=== PATIENT | female | born 1955 | race African-American/Black ===

== ENCOUNTER 2021-06-20 12:40 | Emergency (ER) | payer MEDICARE ==
[~2021-06-20] VITALS: Ht 162.6 cm; Wt 66.8 kg
[~2021-06-20 12:40] MED LIST: ACIPHEX20 MG PO; AMLODIPINE BESY10 MG PO; ASPIRIN325 MG PO; CRESTOR10 MG PO; ENALAPRIL10 MG PO; HUMULIN R1 M1 SC; HYDROCHLORO25 MG/TAB PO; LEVEMIR SC; NEXIUM40 M1 PO; ZOLOFT100 MG PO
[2021-06-20] MEDS ORDERED: KEFLEX500 MG PO (14:14)
[2021-06-20 14:37] VITALS: BP 152/73
== END 2021-06-20 14:45 | disposition home or self-care (01) ==
LOC: ED 12:40
DX: S81.812A Laceration without foreign body, left lower leg, initial encounter (principal); L08.9 Local infection of the skin and subcutaneous tissue, unspecified; B95.61 Methicillin susceptible Staphylococcus aureus infection as the cause of diseases classified elsewhere; E11.9 Type 2 diabetes mellitus without complications; I10 Essential (primary) hypertension; K21.9 Gastro-esophageal reflux disease without esophagitis; H54.7 Unspecified visual loss; W22.09XA Striking against other stationary object, initial encounter; Y92.009 Unspecified place in unspecified non-institutional (private) residence as the place of occurrence of the external cause; Z79.4 Long term (current) use of insulin

== ENCOUNTER 2021-06-28 15:20 | Emergency (ER) | payer MEDICARE ==
[~2021-06-28] VITALS: Ht 162.6 cm; Wt 67.0 kg
[~2021-06-28 15:20] MED LIST changes: +KEFLEX500 MG PO
[2021-06-28] MEDS ORDERED: OMNI-PAC300 MG PO (17:46)
[2021-06-28 18:30] VITALS: BP 136/79
== END 2021-06-28 18:30 | disposition home or self-care (01) ==
LOC: ED 15:20
DX: S81.012A Laceration without foreign body, left knee, initial encounter (principal); E11.9 Type 2 diabetes mellitus without complications; H54.7 Unspecified visual loss; I10 Essential (primary) hypertension; K21.9 Gastro-esophageal reflux disease without esophagitis; X58.XXXA Exposure to other specified factors, initial encounter; Z79.4 Long term (current) use of insulin

== ENCOUNTER 2021-11-19 09:53 | Observation (INO) | payer MEDICARE ==
[~2021-11-19] VITALS: Ht 162.6 cm; Wt 46.0 kg
[2021-11-19] VITALS (8 sets, daily range): BP systolic 158–208; BP diastolic 76–111
[~2021-11-19 09:53] MED LIST changes: +ASPIRIN ADULT L81 M2 PO; -ASPIRIN325 MG PO; +CLONIDINE0.1 MG PO; +HUMALOG100 UNIT SC; +LABETALOL HYDR200 MG PO; +LANTUS100 UNIT; +LEVEMIR100 UNIT SC; +LOSARTAN POTASS50 MG PO; +NEXIUM 24HR20 MG PO; +NORVASC2.5 M1 PO; +OMNI-PAC300 MG PO
[2021-11-19 10:29] LABS: HEMATOCRIT 32.3 % (37.0-47.0); HEMOGLOBIN 10.8 g/dl (12.0-16.0); MEAN CELL VOLUME 89.2 fL CALC (80.0-100.0); MEAN CORPUSCULAR HGB 29.8 pG CALC (26.0-32.0); MEAN CORPUSCULAR HGB CONC 33.4 g/dL CAL (32.0-36.0); NEUT# 2.99 thou/uL (2.00-7.15); RED BLOOD COUNT 3.62 mill/uL (4.20-5.60); RED CELL DISTRI WIDTH 11.6 % (11.5-15.5)
[2021-11-19 10:42] LABS: URINE BILIRUBIN - DIPSTICK NEGATIVE (NEGATIVE); URINE BLOOD DIPSTICK TRACE-INTACT (NEGATIVE); URINE COLOR YELLOW; URINE GLUCOSE - DIPSTICK >=1000 mg/dL (NEGATIVE); URINE KETONE NEGATIVE (NEGATIVE); URINE LEUK ESTERASE NEGATIVE (NEGATIVE); URINE PROTEIN - DIPSTICK TRACE mg/dL (NEG-TRACE); URINE SPECIFIC GRAVITY <=1.005; URINE UROBILINOGEN - DIPSTICK 0.2 E.U./dL (0.2)
[2021-11-19 10:45] LABS: URINE NITRITE - DIPSTICK NEGATIVE (Negative)
[2021-11-19 10:46] LABS: BILIRUBIN, TOTAL 0.6 mg/dL (0.0-1.4); BUN 13 mg/dL (8-23); BUN/CREATININE RATIO 13 (12-20 (CALC)); CHLORIDE 95 mmol/l (95-108); GFR FOR AFR.AMER. > 60 ML/MIN (>=60 (CALC)); GFR OTHER RACES 55 ML/MIN (>=60 (CALC)); POTASSIUM 3.8 mmol/l (3.5-5.1); SGOT/AST 20 u/l (9-36); SODIUM 134 mmol/l (137-146)
[2021-11-19 10:49] LABS: ALKALINE PHOSPHATASE 83 u/l (38-126); ANION GAP 8 (6-22 (CALC)); CARBON DIOXIDE 35 mmol/l (22-30); TOTAL PROTEIN 7.3 g/dL (6.3-8.2)
[2021-11-19] MEDS ORDERED: SERTRALINE50 MG PO (16:02)
[2021-11-19] MEDS ORDERED: OFLOXACIN0.31 OD (16:05)
[2021-11-19] MEDS ORDERED: XALATAN0.005 % OU (16:06)
[2021-11-20] VITALS: BP 140/75
[2021-11-20 04:00] VITALS: BP 147/79
[2021-11-20 05:10] LABS: HEMATOCRIT 30.5 % (37.0-47.0); HEMOGLOBIN 10.1 g/dl (12.0-16.0); IMMATURE GRANULOCYTES 0.2 % (0.0-5.0); MEAN CELL VOLUME 90.5 fL CALC (80.0-100.0); MEAN CORPUSCULAR HGB CONC 33.1 g/dL CAL (32.0-36.0); NEUT# 3.73 thou/uL (2.00-7.15); RED BLOOD COUNT 3.37 mill/uL (4.20-5.60); RED CELL DISTRI WIDTH 11.6 % (11.5-15.5)
[2021-11-20 05:26] LABS: ALBUMIN 3.4 g/dL (3.2-5.0); ALKALINE PHOSPHATASE 64 u/l (38-126); ANION GAP 9 (6-22 (CALC)); BILIRUBIN, TOTAL 0.4 mg/dL (0.0-1.4); BUN 11 mg/dL (8-23); BUN/CREATININE RATIO 12 (12-20 (CALC)); CARBON DIOXIDE 29 mmol/l (22-30); CHLORIDE 102 mmol/l (95-108); CREATININE 0.9 mg/dL (0.5-1.0); GFR FOR AFR.AMER. > 60 ML/MIN (>=60 (CALC)); GFR OTHER RACES > 60 ML/MIN (>=60 (CALC)); POTASSIUM 3.4 mmol/l (3.5-5.1); SGOT/AST 18 u/l (9-36); SODIUM 137 mmol/l (137-146); TOTAL PROTEIN 6.1 g/dL (6.3-8.2)
[2021-11-20 05:27] LABS: MAGNESIUM 1.7 mg/dL (1.6-2.3)
[2021-11-20 06:46] VITALS: BP 143/77
[2021-11-20 18:54] VITALS: BP 135/67
[2021-11-20 20:30] VITALS: BP 151/74
[2021-11-21 01:11] VITALS: BP 146/71
[2021-11-21 04:30] VITALS: BP 175/86
[2021-11-21 05:59] LABS: ANION GAP 9 (6-22 (CALC)); BUN 9 mg/dL (8-23); BUN/CREATININE RATIO 11 (12-20 (CALC)); CARBON DIOXIDE 28 mmol/l (22-30); CHLORIDE 103 mmol/l (95-108); CREATININE 0.8 mg/dL (0.5-1.0); GFR FOR AFR.AMER. > 60 ML/MIN (>=60 (CALC)); GFR OTHER RACES > 60 ML/MIN (>=60 (CALC)); MAGNESIUM 1.7 mg/dL (1.6-2.3); POTASSIUM 3.9 mmol/l (3.5-5.1); SODIUM 136 mmol/l (137-146)
[2021-11-21 06:56] VITALS: BP 182/68
[2021-11-21 10:56] VITALS: BP 145/76
[2021-11-21 17:01] VITALS: BP 209/101
[2021-11-21 19:11] VITALS: BP 126/52
[2021-11-22 00:06] VITALS: BP 142/76
[2021-11-22 04:41] VITALS: BP 155/67
[2021-11-22 05:30] LABS: HEMATOCRIT 32.1 % (37.0-47.0); HEMOGLOBIN 10.4 g/dl (12.0-16.0); MEAN CELL VOLUME 92.2 fL CALC (80.0-100.0); MEAN CORPUSCULAR HGB 29.9 pG CALC (26.0-32.0); MEAN CORPUSCULAR HGB CONC 32.4 g/dL CAL (32.0-36.0); RED BLOOD COUNT 3.48 mill/uL (4.20-5.60); RED CELL DISTRI WIDTH 11.6 % (11.5-15.5)
[2021-11-22 06:03] LABS: ANION GAP 12 (6-22 (CALC)); BUN 9 mg/dL (8-23); BUN/CREATININE RATIO 9 (12-20 (CALC)); CARBON DIOXIDE 26 mmol/l (22-30); CHLORIDE 101 mmol/l (95-108); CREATININE 0.9 mg/dL (0.5-1.0); GFR FOR AFR.AMER. > 60 ML/MIN (>=60 (CALC)); GFR OTHER RACES > 60 ML/MIN (>=60 (CALC)); POTASSIUM 3.8 mmol/l (3.5-5.1); SODIUM 135 mmol/l (137-146)
[2021-11-22 06:23] VITALS: BP 141/76
[2021-11-22 10:19] VITALS: BP 136/76
[2021-11-22 14:11] VITALS: BP 133/67
[2021-11-22 19:09] VITALS: BP 133/69
[2021-11-23] VITALS (12 sets, daily range): BP systolic 112–198; BP diastolic 60–96
[2021-11-23 05:13] LABS: HEMATOCRIT 30.2 % (37.0-47.0); HEMOGLOBIN 9.7 g/dl (12.0-16.0); IMMATURE GRANULOCYTES 0.2 % (0.0-5.0); MEAN CELL VOLUME 92.4 fL CALC (80.0-100.0); MEAN CORPUSCULAR HGB 29.7 pG CALC (26.0-32.0); MEAN CORPUSCULAR HGB CONC 32.1 g/dL CAL (32.0-36.0); NEUT# 2.74 thou/uL (2.00-7.15); RED BLOOD COUNT 3.27 mill/uL (4.20-5.60); RED CELL DISTRI WIDTH 11.7 % (11.5-15.5)
[2021-11-23 05:34] LABS: ALBUMIN 3.1 g/dL (3.2-5.0); CREATININE 1.1 mg/dL (0.5-1.0); POTASSIUM 4.4 mmol/l (3.5-5.1); TOTAL PROTEIN 5.8 g/dL (6.3-8.2)
[2021-11-23 05:42] LABS: BILIRUBIN, TOTAL 0.2 mg/dL (0.0-1.4)
[2021-11-23 16:28] LABS: URINE BILIRUBIN - DIPSTICK NEGATIVE (NEGATIVE); URINE BLOOD DIPSTICK NEGATIVE (NEGATIVE); URINE CLARITY CLEAR; URINE COLOR YELLOW; URINE GLUCOSE - DIPSTICK >=1000 mg/dL (NEGATIVE); URINE KETONE NEGATIVE (NEGATIVE); URINE LEUK ESTERASE NEGATIVE (Negative); URINE NITRITE - DIPSTICK NEGATIVE (Negative); URINE PROTEIN - DIPSTICK 30 mg/dL (NEG-TRACE); URINE SPECIFIC GRAVITY 1.025; URINE UROBILINOGEN - DIPSTICK 0.2 E.U./dL (0.2)
[2021-11-23 16:46] LABS: URINE RBC 0-2 RBC/hpf (0-5); URINE WBC 0-2 WBC/hpf (0-5)
[2021-11-24] VITALS (11 sets, daily range): BP systolic 96–190; BP diastolic 49–100
[2021-11-24 05:24] LABS: HEMATOCRIT 33.1 % (37.0-47.0); HEMOGLOBIN 10.7 g/dl (12.0-16.0); IMMATURE GRANULOCYTES 0.2 % (0.0-5.0); MEAN CELL VOLUME 92.5 fL CALC (80.0-100.0); MEAN CORPUSCULAR HGB 29.9 pG CALC (26.0-32.0); MEAN CORPUSCULAR HGB CONC 32.3 g/dL CAL (32.0-36.0); NEUT# 4.9 thou/uL (2.00-7.15); RED BLOOD COUNT 3.58 mill/uL (4.20-5.60); RED CELL DISTRI WIDTH 11.7 % (11.5-15.5)
[2021-11-24 05:46] LABS: CREATININE 1.1 mg/dL (0.5-1.0); MAGNESIUM 1.5 mg/dL (1.6-2.3)
[2021-11-24 05:48] LABS: POTASSIUM 5.2 mmol/l (3.5-5.1)
== END 2021-11-24 18:35 ==
LOC: ED 09:53 → ED-I 11:40 → ED 12:07 → MS2 12:08
PROVIDERS: Family Medicine; Hospitalist; Nurse Practitioner; ADMIT Internal Medicine; ATTEND Internal Medicine
DX: E11.65 Type 2 diabetes mellitus with hyperglycemia (principal); I10 Essential (primary) hypertension; E11.36 Type 2 diabetes mellitus with diabetic cataract; H26.9 Unspecified cataract; K21.9 Gastro-esophageal reflux disease without esophagitis; R53.1 Weakness; H54.8 Legal blindness, as defined in USA; F32.A Depression, unspecified; T38.3X6A Underdosing of insulin and oral hypoglycemic [antidiabetic] drugs, initial encounter; T46.5X6A Underdosing of other antihypertensive drugs, initial encounter; Z91.128 Patient's intentional underdosing of medication regimen for other reason; Z60.2 Problems related to living alone; Z86.73 Personal history of transient ischemic attack (TIA), and cerebral infarction without residual deficits; Z79.4 Long term (current) use of insulin; Z20.822 Contact with and (suspected) exposure to COVID-19
CPT/HCPCS: S0166

== ENCOUNTER 2022-09-12 13:13 | Observation (INO) | payer MEDICARE, OTHER ==
[~2022-09-12] VITALS: Ht 162.6 cm; Wt 70.0 kg
[2022-09-12] VITALS (11 sets, daily range): BP systolic 137–187; BP diastolic 73–93
[~2022-09-12 13:13] MED LIST changes: +OFLOXACIN0.31 OD; +SERTRALINE50 MG PO; +XALATAN0.005 % OU
[2022-09-12 13:52] LABS: BASO% 0.3 % (0-3); EOS% 0.1 % (0-8); HEMATOCRIT 30.9 % (37.0-47.0); HEMOGLOBIN 9.8 g/dl (12.0-16.0); IMMATURE GRANULOCYTES 0.1 % (0.0-5.0); LYMPH% 11.7 % (15-41); MEAN CORPUSCULAR HGB 27.6 pG CALC (26.0-32.0); MEAN CORPUSCULAR HGB CONC 31.7 g/dL CAL (32.0-36.0); MONO% 4.1 % (2-13); NEUT# 5.77 thou/uL (2.00-7.15); NEUT% 83.7 % (42-76); RED BLOOD COUNT 3.55 mill/uL (4.20-5.60); RED CELL DISTRI WIDTH 13.3 % (11.5-15.5)
[2022-09-12 14:04] LABS: INTERNATIONAL NORMALIZED RATIO 1.1 RATIO (0.7-1.3)
[2022-09-12 14:06] LABS: ALKALINE PHOSPHATASE 80 u/l (38-126); ANION GAP 17 (6-22 (CALC)); CARBON DIOXIDE 20 mmol/l (22-30); CHLORIDE 105 mmol/l (95-108); CREATININE 1.9 mg/dL (0.5-1.0); GFR FOR AFR.AMER. 32 ML/MIN (>=60 (CALC)); GFR OTHER RACES 26 ML/MIN (>=60 (CALC)); POTASSIUM 4.6 mmol/l (3.5-5.1); SGOT/AST 22 u/l (9-36); SODIUM 136 mmol/l (137-146)
[2022-09-12 14:45] LABS: URINE BILIRUBIN - DIPSTICK NEGATIVE (NEGATIVE); URINE BLOOD DIPSTICK SMALL (NEGATIVE); URINE COLOR YELLOW; URINE GLUCOSE - DIPSTICK NEGATIVE (NEGATIVE); URINE KETONE TRACE mg/dL (NEGATIVE); URINE LEUK ESTERASE TRACE (NEGATIVE); URINE PH 5.5 (4.5-8.0); URINE PROTEIN - DIPSTICK NEGATIVE (NEG-TRACE); URINE UROBILINOGEN - DIPSTICK 0.2 E.U./dL (0.2)
[2022-09-12 14:46] LABS: URINE NITRITE - DIPSTICK NEGATIVE (Negative)
[2022-09-12 14:50] LABS: URINE CASTS RARE lpf (NONE-RARE); URINE SQUAMOUS EPITHELIAL CELL FEW EPI/hpf (0-FEW); URINE WBC 0-2 WBC/hpf (0-5)
[2022-09-12 14:58] LABS: ALBUMIN 4.6 g/dL (3.2-5.0); BILIRUBIN, TOTAL 0.4 mg/dL (0.02-1.3); BUN 37 mg/dL (8-23); BUN/CREATININE RATIO 19 (12-20 (CALC)); TOTAL PROTEIN 8.1 g/dL (6.3-8.2)
[2022-09-12] MEDS ORDERED: ABILIFY5 MG PO (15:27)
[2022-09-12] MEDS ORDERED: AMLODIPINE BES2.5 MG PO (15:27)
[2022-09-12] MEDS ORDERED: HYDROCHLOROT25 MG PO (15:29)
[2022-09-12] MEDS ORDERED: LINZESS72 MCG PO (15:30)
[2022-09-12] MEDS ORDERED: NOVOLOG100 UNIT SC (15:31)
[2022-09-12] MEDS ORDERED: TOPAMAX50 M1 PO (15:32)
[2022-09-12] MEDS ORDERED: TRESIBA100 UNIT/M SC (15:33)
[2022-09-13] VITALS (7 sets, daily range): BP systolic 131–164; BP diastolic 54–79
[2022-09-13 05:29] LABS: BASO% 0.4 % (0-3); EOS% 0.7 % (0-8); HEMATOCRIT 29.6 % (37.0-47.0); HEMOGLOBIN 9.3 g/dl (12.0-16.0); IMMATURE GRANULOCYTES 0.2 % (0.0-5.0); LYMPH% 28.9 % (15-41); MEAN CORPUSCULAR HGB CONC 31.4 g/dL CAL (32.0-36.0); NEUT# 3.53 thou/uL (2.00-7.15); NEUT% 62.8 % (42-76); RED BLOOD COUNT 3.44 mill/uL (4.20-5.60); RED CELL DISTRI WIDTH 13.3 % (11.5-15.5)
[2022-09-13 05:48] LABS: ALBUMIN 4.2 g/dL (3.2-5.0); BILIRUBIN, TOTAL 0.3 mg/dL (0.02-1.3); CREATININE 1.4 mg/dL (0.5-1.0); POTASSIUM 3.8 mmol/l (3.5-5.1); TOTAL PROTEIN 7.5 g/dL (6.3-8.2)
[2022-09-14] VITALS: BP 130/71
[2022-09-14 03:46] VITALS: BP 144/66
[2022-09-14 05:49] VITALS: BP 131/49
[2022-09-14 05:51] LABS: BILIRUBIN, TOTAL 0.3 mg/dL (0.02-1.3); CREATININE 1.3 mg/dL (0.5-1.0); POTASSIUM 3.7 mmol/l (3.5-5.1)
[2022-09-14 05:52] LABS: MAGNESIUM 1.9 mg/dL (1.6-2.3)
[2022-09-14 05:54] LABS: HEMATOCRIT 29.8 % (37.0-47.0); HEMOGLOBIN 9.3 g/dl (12.0-16.0); MEAN CELL VOLUME 86.9 fL CALC (80.0-100.0); MEAN CORPUSCULAR HGB 27.1 pG CALC (26.0-32.0); MEAN CORPUSCULAR HGB CONC 31.2 g/dL CAL (32.0-36.0); RED BLOOD COUNT 3.43 mill/uL (4.20-5.60); RED CELL DISTRI WIDTH 13.3 % (11.5-15.5)
[2022-09-14 09:48] VITALS: BP 154/75
== END 2022-09-14 14:49 ==
LOC: ED 13:13 → ED-I 15:00 → ED 15:16 → MS2 15:17
PROVIDERS: Family Medicine; Nurse Practitioner Family; ADMIT Internal Medicine; ATTEND Internal Medicine
DX: G93.40 Encephalopathy, unspecified (principal); N17.9 Acute kidney failure, unspecified; I12.9 Hypertensive chronic kidney disease with stage 1 through stage 4 chronic kidney disease, or unspecified chronic kidney disease; E11.22 Type 2 diabetes mellitus with diabetic chronic kidney disease; N18.9 Chronic kidney disease, unspecified; H54.7 Unspecified visual loss; K21.9 Gastro-esophageal reflux disease without esophagitis; F32.A Depression, unspecified; Z79.4 Long term (current) use of insulin; Z86.73 Personal history of transient ischemic attack (TIA), and cerebral infarction without residual deficits; Z20.822 Contact with and (suspected) exposure to COVID-19
CPT/HCPCS: J2060

== ENCOUNTER 2023-12-27 11:29 | Emergency (ER) | payer MEDICARE, OTHER ==
[~2023-12-27] VITALS: Ht 162.6 cm; Wt 54.4 kg
[2023-12-27] VITALS (15 sets, daily range): BP systolic 118–146; BP diastolic 49–73
[~2023-12-27 11:29] MED LIST changes: +ABILIFY5 MG PO; +AMLODIPINE BES2.5 MG PO; +CLONIDINE0.2 MG PO; +DULCOLAX10 MG RE; +GLUCAGON1 MG IJ; +HYDROCHLOROT25 MG PO; +LINZESS72 MCG PO; +MILK OF MAGNES7.75 %; +NAMENDA1 TAB PO; +NOVOLOG100 UNIT SC; +PAIN RELIEF325 MG PO; +POLYETHYLE17 GM/SCOO; +REXULTI0.5 MG; +TOPAMAX50 M1 PO; +TRESIBA100 UNIT/M SC; +ULTRAM50 MG PO; +[UNRECOGNIZED DRUG - OTHER]
[2023-12-27 12:00] LABS: BASO% 0.5 % (0-3); EOS% 0.9 % (0-8); HEMATOCRIT 30.7 % (37.0-47.0); HEMOGLOBIN 9.6 g/dl (12.0-16.0); IMMATURE GRANULOCYTES 0.2 % (0.0-5.0); LYMPH% 27.6 % (15-41); MEAN CELL VOLUME 92.2 fL CALC (80.0-100.0); MEAN CORPUSCULAR HGB 28.8 pG CALC (26.0-32.0); MEAN CORPUSCULAR HGB CONC 31.3 g/dL CAL (32.0-36.0); MONO% 7.3 % (2-13); NEUT# 2.71 thou/uL (2.00-7.15); NEUT% 63.5 % (42-76); RED BLOOD COUNT 3.33 mill/uL (4.20-5.60); RED CELL DISTRI WIDTH 12.8 % (11.5-15.5)
[2023-12-27 12:16] LABS: ALBUMIN 4.2 g/dL (3.2-5.0); ALKALINE PHOSPHATASE 57 u/l (38-126); ANION GAP 12 (6-22 (CALC)); BILIRUBIN, TOTAL 0.3 mg/dL (0.02-1.3); BUN 32 mg/dL (8-23); BUN/CREATININE RATIO 18 (12-20 (CALC)); CARBON DIOXIDE 22 mmol/l (22-30); CHLORIDE 110 mmol/l (95-108); CREATININE 1.7 mg/dL (0.5-1.0); ESTIMATED GFR 32 ML/MIN (>=90 (CALC)); SGOT/AST 28 u/l (9-36); SODIUM 139 mmol/l (137-146); TOTAL PROTEIN 7.3 g/dL (6.3-8.2)
== END 2023-12-27 15:52 | disposition home or self-care (01) ==
LOC: ED 11:29
PROVIDERS: Family Medicine
DX: R55 Syncope and collapse (principal); I10 Essential (primary) hypertension; E11.9 Type 2 diabetes mellitus without complications; F32.A Depression, unspecified; Z86.73 Personal history of transient ischemic attack (TIA), and cerebral infarction without residual deficits; F03.90 Unspecified dementia, unspecified severity, without behavioral disturbance, psychotic disturbance, mood disturbance, and anxiety; H54.7 Unspecified visual loss; F41.9 Anxiety disorder, unspecified; Z79.4 Long term (current) use of insulin

== ENCOUNTER 2024-06-05 12:12 | Emergency (ER) | payer MEDICARE, OTHER ==
[~2024-06-05] VITALS: Ht 162.6 cm; Wt 63.6 kg
[2024-06-05 12:48] LABS: BASO% 0.5 % (0-3); EOS% 1.2 % (0-8); HEMATOCRIT 29.6 % (37.0-47.0); HEMOGLOBIN 9.2 g/dl (12.0-16.0); IMMATURE GRANULOCYTES 0.2 % (0.0-5.0); LYMPH% 30.6 % (15-41); MEAN CELL VOLUME 93.7 fL CALC (80.0-100.0); MEAN CORPUSCULAR HGB 29.1 pG CALC (26.0-32.0); MEAN CORPUSCULAR HGB CONC 31.1 g/dL CAL (32.0-36.0); MONO% 6.7 % (2-13); NEUT# 2.56 thou/uL (2.00-7.15); NEUT% 60.8 % (42-76); RED BLOOD COUNT 3.16 mill/uL (4.20-5.60); RED CELL DISTRI WIDTH 12.5 % (11.5-15.5)
[2024-06-05 13:09] LABS: ALBUMIN 4.4 g/dL (3.2-5.0); ALKALINE PHOSPHATASE 51 u/l (38-126); ANION GAP 16 (6-22 (CALC)); BUN 29 mg/dL (8-23); BUN/CREATININE RATIO 18 (12-20 (CALC)); CARBON DIOXIDE 22 mmol/l (22-30); CHLORIDE 105 mmol/l (95-108); CREATININE 1.6 mg/dL (0.5-1.0); ESTIMATED GFR 34 ML/MIN (>=90 (CALC)); POTASSIUM 4.9 mmol/l (3.5-5.1); SGOT/AST 24 u/l (9-36); SODIUM 138 mmol/l (137-146); TOTAL PROTEIN 7.3 g/dL (6.3-8.2)
[2024-06-05 13:23] LABS: BILIRUBIN, TOTAL 0.3 mg/dL (0.02-1.3)
[2024-06-05 13:49] LABS: URINE BILIRUBIN - DIPSTICK Negative (NEGATIVE); URINE BLOOD DIPSTICK Negative (NEGATIVE); URINE GLUCOSE - DIPSTICK Negative (NEGATIVE); URINE KETONE Trace mg/dL (NEGATIVE); URINE LEUK ESTERASE Negative (NEGATIVE); URINE NITRITE - DIPSTICK Negative (Negative); URINE PH 5.5 (4.5-8.0); URINE PROTEIN - DIPSTICK 30 mg/dL (NEG-TRACE); URINE UROBILINOGEN - DIPSTICK 0.2 E.U./dL (0.2)
[2024-06-05 13:54] LABS: URINE COLOR Yellow
[2024-06-05 13:56] LABS: URINE EPITHELIAL CELLS FEW EPI/hpf (0-FEW); URINE MUCUS FEW hpf (NONE-FEW)
[2024-06-05 15:43] VITALS: BP 177/84
== END 2024-06-05 15:59 | disposition home or self-care (01) ==
LOC: ED 12:12 → ED-I 14:58 → ED 15:59
PROVIDERS: Family Medicine
DX: R55 Syncope and collapse (principal); I10 Essential (primary) hypertension; E11.9 Type 2 diabetes mellitus without complications; F03.90 Unspecified dementia, unspecified severity, without behavioral disturbance, psychotic disturbance, mood disturbance, and anxiety; F32.A Depression, unspecified; Z79.4 Long term (current) use of insulin; Z86.73 Personal history of transient ischemic attack (TIA), and cerebral infarction without residual deficits